=== PATIENT | male | born 1960 | race Caucasian/White ===

== ENCOUNTER → 2016-06-03 | Outpatient (CLI) | payer OTHER ==
[~2016-06-03] MED LIST: ACTOS30 MG PO; AMARYL2 MG PO; AMARYL4 M1 PO; ANTIBIOTIC; BYDUREON P2 MG/0.65 SQ; BYETTA10 MCG/0.0 SQ; HYZAAR 50-12.51 EACH PO; LANTUS100 U/ML SC; LANTUS100 U/ML SG; NORCO 10-325 T1 EACH PO; NORCO 325 MG-51 TAB PO; SYNTHROID0.05 MG/TA PO
== END ==
LOC: LAB 07:01
DX: Z00.00 Encounter for general adult medical examination without abnormal findings (principal); E11.9 Type 2 diabetes mellitus without complications; Z12.5 Encounter for screening for malignant neoplasm of prostate; E03.4 Atrophy of thyroid (acquired)

== ENCOUNTER → 2016-06-09 | Outpatient (CLI) | payer OTHER ==
[2016-06-09 09:30] VITALS: BP 138/80
== END ==
LOC: AMSURD 09:25
DX: Z00.00 Encounter for general adult medical examination without abnormal findings (principal)

== ENCOUNTER → 2016-07-17 | Outpatient (CLI) | payer OTHER | LOC: LAB 07:01 | DX: E03.4 Atrophy of thyroid (acquired) (principal); E11.9 Type 2 diabetes mellitus without complications ==

== ENCOUNTER → 2017-03-18 | Outpatient (CLI) | payer OTHER ==
[2016-06-09 09:30] VITALS: BP 138/80
== END ==
LOC: LAB 16:44
PROVIDERS: Internal Medicine
DX: E11.9 Type 2 diabetes mellitus without complications (principal); E03.4 Atrophy of thyroid (acquired)

== ENCOUNTER → 2018-06-17 | Outpatient (CLI) | payer OTHER ==
[~2018-06-17] VITALS: Ht 188 cm; Wt 111.8 kg
[2018-06-17 15:29] LABS: EOS # 0.1 (0.04-0.40); EOS % 1.3 % (0.0-4.0); HEMATOCRIT 40.9 % (42.0-52.0); HEMOGLOBIN 13.3 g/dL (13.5-18.0); LYMPH# 1.5 (1.50-4.00); MEAN CELL VOLUME 92 fl (78-100); MEAN CORPUSCULAR HEMOGLOBIN 30 pg (27-31); MEAN CORPUSCULAR HGB CONC 33 g/dL (33-37); MEAN PLATELET VOLUME 10.2 fl (7.4-10.4); MONO # 0.6 (0.20-0.80); NEU # 6.7 (1.40-6.50); PLATELET COUNT 136 K/mm3 (130-400); RED BLOOD COUNT 4.46 M/mm3 (4.20-5.60); RED CELL DISTRIBUTION WIDTH 13.5 % (11.5-14.5)
[2018-06-17 15:35] LABS: ALBUMIN 4.2 g/dL (3.5-5.0); CALCIUM 9.3 mg/dL (8.4-10.2); POTASSIUM 4.7 mmol/L (3.6-5.0); TOTAL BILIRUBIN 0.7 mg/dL (0.2-1.3); TOTAL PROTEIN 7.8 g/dL (6.3-8.2)
[2018-06-17 15:41] VITALS: BP 143/85
[2018-06-20 23:57] LABS: ERYTHROCYTE SEDIMENTATION RATE 51 mm/hr (0-20)
== END ==
LOC: LAB 15:04 → RAD 15:04 → AMSURD 15:04
PROVIDERS: Internal Medicine
DX: R16.1 Splenomegaly, not elsewhere classified (principal); R19.04 Left lower quadrant abdominal swelling, mass and lump; R93.5 Abnormal findings on diagnostic imaging of other abdominal regions, including retroperitoneum; R59.0 Localized enlarged lymph nodes
CPT/HCPCS: J0696; J1885; Q9967

== ENCOUNTER → 2018-06-20 | Outpatient (CLI) | payer OTHER ==
[2018-06-17 15:41] VITALS: BP 143/85
== END ==
LOC: LAB 11:34
DX: L02.214 Cutaneous abscess of groin (principal)

== ENCOUNTER → 2018-06-27 | Outpatient (CLI) | payer OTHER ==
[2018-06-17 15:41] VITALS: BP 143/85
[2018-06-27 08:35] LABS: EOS # 0.1 (0.04-0.40); EOS % 2.2 % (0.0-4.0); HEMATOCRIT 43.4 % (42.0-52.0); HEMOGLOBIN 13.7 g/dL (13.5-18.0); LYMPH# 1.4 (1.50-4.00); MEAN CELL VOLUME 93 fl (78-100); MEAN CORPUSCULAR HEMOGLOBIN 29 pg (27-31); MEAN CORPUSCULAR HGB CONC 32 g/dL (33-37); MEAN PLATELET VOLUME 9.8 fl (7.4-10.4); MONO # 0.4 (0.20-0.80); PLATELET COUNT 146 K/mm3 (130-400); RED BLOOD COUNT 4.66 M/mm3 (4.20-5.60); RED CELL DISTRIBUTION WIDTH 14.1 % (11.5-14.5)
[2018-06-27 08:52] LABS: CALCIUM 9.3 mg/dL (8.4-10.2); POTASSIUM 4.9 mmol/L (3.6-5.0); TOTAL BILIRUBIN 0.5 mg/dL (0.2-1.3); TOTAL PROTEIN 7.7 g/dL (6.3-8.2)
[2018-06-27 10:47] LABS: URINE APPEARANCE CLEAR; URINE BILIRUBIN NEGATIVE (NEGATIVE); URINE BLOOD NEGATIVE (NEGATIVE); URINE COLOR YELLOW; URINE KETONE NEGATIVE (NEGATIVE); URINE LEUKOCYTE ESTERASE NEGATIVE (NEGATIVE); URINE NITRATE NEGATIVE (NEGATIVE); URINE PROTEIN(semi-quant) NEGATIVE (NEGATIVE); URINE UROBILINOGEN NORMAL (NORMAL)
[2018-06-27 10:48] LABS: URINE MUCUS PRESENT (NOT PRESENT)
[2018-06-27 22:47] LABS: CREATININE OTHER SOURCE 87 mg/dL (())
== END ==
LOC: LAB 08:10
PROVIDERS: Internal Medicine
DX: Z12.5 Encounter for screening for malignant neoplasm of prostate (principal); Z12.11 Encounter for screening for malignant neoplasm of colon; Z00.00 Encounter for general adult medical examination without abnormal findings

== ENCOUNTER → 2019-04-21 | Outpatient (CLI) | payer OTHER ==
[2018-06-17 15:41] VITALS: BP 143/85
[2019-04-21 12:14] LABS: HEMATOCRIT 40.6 % (42.0-52.0); HEMOGLOBIN 13.5 g/dL (13.5-18.0); MEAN CELL VOLUME 88 fl (78-100); MEAN CORPUSCULAR HEMOGLOBIN 29 pg (27-31); MEAN CORPUSCULAR HGB CONC 33 g/dL (33-37); MEAN PLATELET VOLUME 10.3 fl (7.4-10.4); PLATELET COUNT 127 K/mm3 (130-400); RED BLOOD COUNT 4.64 M/mm3 (4.20-5.60); RED CELL DISTRIBUTION WIDTH 13.6 % (11.5-14.5); WHITE BLOOD COUNT 11.5 K/mm3 (4.8-10.8)
[2019-04-21 12:24] LABS: ALBUMIN 3.8 g/dL (3.5-5.0); POTASSIUM 4.2 mmol/L (3.5-5.1)
[2019-04-21 12:25] LABS: CALCIUM 9.2 mg/dL (8.3-10.5)
[2019-04-21 12:27] LABS: TOTAL PROTEIN 7.5 g/dL (6.4-8.3)
[2019-04-21 12:28] LABS: TOTAL BILIRUBIN 1.6 mg/dL (0.2-1.2)
[2019-04-21 14:16] LABS: LYMPHOCYTE 13 % (20-51); MONOCYTE 6 % (3-10); NEUTROPHILS 80 % (42-75)
[2019-04-21 14:18] LABS: ERYTHROCYTE SEDIMENTATION RATE 50 mm/hr (0-20)
== END ==
LOC: LAB 11:54
PROVIDERS: Internal Medicine
DX: M19.071 Primary osteoarthritis, right ankle and foot (principal); L97.519 Non-pressure chronic ulcer of other part of right foot with unspecified severity

== ENCOUNTER → 2019-04-26 | Outpatient (CLI) | payer OTHER ==
[2018-06-17 15:41] VITALS: BP 143/85
== END ==
LOC: RAD 08:12
DX: L97.519 Non-pressure chronic ulcer of other part of right foot with unspecified severity (principal); M13.871 Other specified arthritis, right ankle and foot; M89.9 Disorder of bone, unspecified
CPT/HCPCS: A9585

== ENCOUNTER → 2019-07-27 | Outpatient (CLI) | payer OTHER ==
[2018-06-17 15:41] VITALS: BP 143/85
[2019-07-27 07:46] LABS: EOS # 0.2 (0.04-0.40); EOS % 3.3 % (0.0-4.0); HEMATOCRIT 42.6 % (42.0-52.0); HEMOGLOBIN 13.9 g/dL (13.5-18.0); LYMPH# 1.5 (1.50-4.00); MEAN CELL VOLUME 89 fl (78-100); MEAN CORPUSCULAR HEMOGLOBIN 29 pg (27-31); MEAN CORPUSCULAR HGB CONC 33 g/dL (33-37); MEAN PLATELET VOLUME 10.1 fl (7.4-10.4); MONO # 0.5 (0.20-0.80); NEU # 2.7 (1.40-6.50); PLATELET COUNT 96 K/mm3 (130-400); RED BLOOD COUNT 4.79 M/mm3 (4.20-5.60); RED CELL DISTRIBUTION WIDTH 14.3 % (11.5-14.5); WHITE BLOOD COUNT 4.9 K/mm3 (4.8-10.8)
[2019-07-27 07:47] LABS: POTASSIUM 3.7 mmol/L (3.5-5.1)
[2019-07-27 07:48] LABS: CALCIUM 10.3 mg/dL (8.3-10.5)
[2019-07-27 07:50] LABS: TOTAL PROTEIN 7.3 g/dL (6.4-8.3)
[2019-07-27 07:51] LABS: TOTAL BILIRUBIN 0.6 mg/dL (0.2-1.2)
== END ==
LOC: LAB 07:21
PROVIDERS: Internal Medicine
DX: E11.9 Type 2 diabetes mellitus without complications (principal)

== ENCOUNTER → 2019-10-21 | Outpatient (CLI) | payer OTHER ==
[2018-06-17 15:41] VITALS: BP 143/85
== END ==
LOC: LAB 17:02
DX: U07.1 COVID-19 (principal)

== ENCOUNTER → 2020-01-11 | Outpatient (CLI) | payer OTHER ==
[2018-06-17 15:41] VITALS: BP 143/85
[2020-01-11 11:22] LABS: EOS # 0.1 (0.04-0.40); EOS % 2.1 % (0.0-4.0); HEMATOCRIT 44.3 % (42.0-52.0); HEMOGLOBIN 14.3 g/dL (13.5-18.0); MEAN CELL VOLUME 90 fl (78-100); MEAN CORPUSCULAR HEMOGLOBIN 29 pg (27-31); MEAN CORPUSCULAR HGB CONC 32 g/dL (33-37); MEAN PLATELET VOLUME 9.9 fl (7.4-10.4); MONO # 0.5 (0.20-0.80); NEU # 3.8 (1.40-6.50); PLATELET COUNT 143 K/mm3 (130-400); RED BLOOD COUNT 4.92 M/mm3 (4.20-5.60); RED CELL DISTRIBUTION WIDTH 14.7 % (11.5-14.5); WHITE BLOOD COUNT 6.5 K/mm3 (4.8-10.8)
[2020-01-11 11:31] LABS: ALBUMIN 4.3 g/dL (3.4-4.8); POTASSIUM 4.5 mmol/L (3.5-5.1)
[2020-01-11 11:32] LABS: CALCIUM 9.6 mg/dL (8.3-10.5)
[2020-01-11 11:34] LABS: TOTAL PROTEIN 8.4 g/dL (6.2-8.1)
[2020-01-11 11:36] LABS: TOTAL BILIRUBIN 0.6 mg/dL (0.2-1.2)
[2020-01-11 12:25] LABS: ERYTHROCYTE SEDIMENTATION RATE 33 mm/hr (0-20)
[2020-01-11 13:08] LABS: URINE APPEARANCE CLEAR; URINE BILIRUBIN NEGATIVE (NEGATIVE); URINE BLOOD NEGATIVE (NEGATIVE); URINE COLOR YELLOW; URINE GLUCOSE NEGATIVE (NEGATIVE); URINE KETONE NEGATIVE (NEGATIVE); URINE LEUKOCYTE ESTERASE NEGATIVE (NEGATIVE); URINE MUCUS PRESENT (NOT PRESENT); URINE NITRATE NEGATIVE (NEGATIVE); URINE PROTEIN(semi-quant) TRACE mg/dL (NEGATIVE); URINE UROBILINOGEN NORMAL (NORMAL); URINE WBC 0-1 /hpf (0-3)
== END ==
LOC: RAD 11:05
PROVIDERS: Internal Medicine
DX: S91.302A Unspecified open wound, left foot, initial encounter (principal); E11.42 Type 2 diabetes mellitus with diabetic polyneuropathy; M14.60 Charcot's joint, unspecified site

== ENCOUNTER → 2020-05-30 | Outpatient (REF) ==
[2018-06-17 15:41] VITALS: BP 143/85
== END ==
LOC: LAB 10:10 → EDSTATUS 10:21
DX: R05 Cough (principal); R11.0 Nausea; Z20.828 Contact with and (suspected) exposure to other viral communicable diseases

== ENCOUNTER → 2020-06-11 | Outpatient (CLI) | payer OTHER ==
[2018-06-17 15:41] VITALS: BP 143/85
[2020-06-11 09:45] LABS: ALBUMIN 3.5 g/dL (3.4-4.8); POTASSIUM 4.6 mmol/L (3.5-5.1)
[2020-06-11 09:48] LABS: HEMATOCRIT 37.2 % (42.0-52.0); HEMOGLOBIN 11.8 g/dL (13.5-18.0); MEAN CELL VOLUME 92 fl (78-100); MEAN CORPUSCULAR HEMOGLOBIN 29 pg (27-31); MEAN CORPUSCULAR HGB CONC 32 g/dL (33-37); MEAN PLATELET VOLUME 10.2 fl (7.4-10.4); PLATELET COUNT 189 K/mm3 (130-400); RED BLOOD COUNT 4.05 M/mm3 (4.20-5.60); RED CELL DISTRIBUTION WIDTH 13.5 % (11.5-14.5); TOTAL PROTEIN 7.2 g/dL (6.2-8.1); WHITE BLOOD COUNT 11.9 K/mm3 (4.8-10.8)
[2020-06-11 09:50] LABS: TOTAL BILIRUBIN 0.6 mg/dL (0.2-1.2)
[2020-06-11 09:58] LABS: LYMPHOCYTE 12 % (20-51); MONOCYTE 7 % (3-10); NEUTROPHILS 81 % (42-75)
[2020-06-11 10:46] LABS: ERYTHROCYTE SEDIMENTATION RATE 65 mm/hr (0-20)
== END ==
LOC: LAB 09:00
DX: B99.9 Unspecified infectious disease (principal)

== ENCOUNTER → 2020-06-13 | Outpatient (CLI) | payer OTHER ==
[2018-06-17 15:41] VITALS: BP 143/85
== END ==
LOC: RAD 12:46
DX: M19.072 Primary osteoarthritis, left ankle and foot (principal)

== ENCOUNTER → 2020-06-18 | Outpatient (CLI) | payer OTHER ==
[2018-06-17 15:41] VITALS: BP 143/85
== END ==
LOC: RAD 08:53
DX: M19.072 Primary osteoarthritis, left ankle and foot (principal); E11.621 Type 2 diabetes mellitus with foot ulcer; L97.529 Non-pressure chronic ulcer of other part of left foot with unspecified severity
CPT/HCPCS: A9585

== ENCOUNTER → 2020-06-20 | Outpatient (CLI) | payer OTHER ==
[2018-06-17 15:41] VITALS: BP 143/85
== END ==
LOC: RAD 14:02
DX: E11.621 Type 2 diabetes mellitus with foot ulcer (principal); E11.610 Type 2 diabetes mellitus with diabetic neuropathic arthropathy; L97.519 Non-pressure chronic ulcer of other part of right foot with unspecified severity; L97.909 Non-pressure chronic ulcer of unspecified part of unspecified lower leg with unspecified severity
CPT/HCPCS: A9585

== ENCOUNTER → 2020-08-01 | Outpatient (CLI) | payer OTHER ==
[2018-06-17 15:41] VITALS: BP 143/85
[~2020-08-01] MED LIST changes: +AMLODIPINE BESYL5 MG PO; +ASPIRIN E.C. 8181 MG PO; +BASAGLAR K100 UNIT/1 SQ; +NOVOLOG FLEX100 U/ML SQ; +ROXICODONE 55 MG/TAB PO; +TRULICITY1.5 MG/0.5 SQ
[2020-08-01 11:18] LABS: URINE WBC 0 /hpf (0-3)
[2020-08-01 11:39] LABS: ALBUMIN 4.4 g/dL (3.4-4.8)
[2020-08-01 11:40] LABS: POTASSIUM 4.7 mmol/L (3.5-5.1)
[2020-08-01 11:41] LABS: CALCIUM 9.7 mg/dL (8.3-10.5)
[2020-08-01 11:42] LABS: TOTAL PROTEIN 7.9 g/dL (6.2-8.1)
[2020-08-01 11:44] LABS: TOTAL BILIRUBIN 0.7 mg/dL (0.2-1.2)
[2020-08-01 11:49] LABS: MAGNESIUM 1.92 mg/dL (1.60-2.60)
[2020-08-01 11:54] LABS: EOS # 0.2 (0.04-0.40); EOS % 2.3 % (0.0-4.0); HEMATOCRIT 39.7 % (42.0-52.0); HEMOGLOBIN 12.8 g/dL (13.5-18.0); MEAN CELL VOLUME 92 fl (78-100); MEAN CORPUSCULAR HEMOGLOBIN 30 pg (27-31); MEAN CORPUSCULAR HGB CONC 32 g/dL (33-37); MEAN PLATELET VOLUME 10.2 fl (7.4-10.4); MONO # 0.6 (0.20-0.80); NEU # 3.9 (1.40-6.50); PLATELET COUNT 131 K/mm3 (130-400); RED BLOOD COUNT 4.33 M/mm3 (4.20-5.60); RED CELL DISTRIBUTION WIDTH 14.7 % (11.5-14.5); WHITE BLOOD COUNT 6.5 K/mm3 (4.8-10.8)
[2020-08-01 12:23] LABS: URINE APPEARANCE CLEAR; URINE BILIRUBIN NEGATIVE (NEGATIVE); URINE BLOOD NEGATIVE (NEGATIVE); URINE COLOR YELLOW; URINE GLUCOSE NEGATIVE (NEGATIVE); URINE KETONE NEGATIVE (NEGATIVE); URINE LEUKOCYTE ESTERASE NEGATIVE (NEGATIVE); URINE MUCUS PRESENT (NOT PRESENT); URINE NITRATE NEGATIVE (NEGATIVE); URINE PROTEIN(semi-quant) NEGATIVE (NEGATIVE); URINE UROBILINOGEN NORMAL (NORMAL)
== END ==
LOC: RAD 10:50
PROVIDERS: Internal Medicine
DX: Z01.812 Encounter for preprocedural laboratory examination (principal)

== ENCOUNTER → 2020-08-05 | Outpatient (CLI) | payer OTHER ==
[2018-06-17 15:41] VITALS: BP 143/85
== END ==
LOC: LAB 07:04
DX: Z01.812 Encounter for preprocedural laboratory examination (principal); Z20.822 Contact with and (suspected) exposure to COVID-19

== ENCOUNTER → 2020-11-04 | Outpatient (CLI) | payer OTHER ==
[2020-11-04 15:38] LABS: HEMATOCRIT 37.6 % (42.0-52.0); HEMOGLOBIN 12.4 g/dL (13.5-18.0); MEAN PLATELET VOLUME 10.4 fl (7.4-10.4); RED BLOOD COUNT 4.23 M/mm3 (4.20-5.60); RED CELL DISTRIBUTION WIDTH 13.5 % (11.5-14.5); WHITE BLOOD COUNT 5.9 K/mm3 (4.8-10.8)
[2020-11-04 15:46] LABS: POTASSIUM 4.2 mmol/L (3.5-5.1)
[2020-11-04 15:47] LABS: CALCIUM 9.4 mg/dL (8.3-10.5)
[2020-11-04 15:49] LABS: TOTAL PROTEIN 7.3 g/dL (6.2-8.1)
[2020-11-04 15:50] LABS: TOTAL BILIRUBIN 0.6 mg/dL (0.2-1.2)
== END ==
LOC: LAB 12:14
PROVIDERS: Internal Medicine Infectious Disease
DX: T81.49XA Infection following a procedure, other surgical site, initial encounter (principal)

== ENCOUNTER → 2020-11-11 | Outpatient (CLI) | payer OTHER ==
[2020-11-11 18:33] LABS: ALBUMIN 3.9 g/dL (3.4-4.8); POTASSIUM 4.2 mmol/L (3.5-5.1)
[2020-11-11 18:35] LABS: CALCIUM 8.9 mg/dL (8.3-10.5); HEMATOCRIT 37.1 % (42.0-52.0); HEMOGLOBIN 12.4 g/dL (13.5-18.0); MEAN PLATELET VOLUME 11.6 fl (7.4-10.4); RED BLOOD COUNT 4.18 M/mm3 (4.20-5.60); RED CELL DISTRIBUTION WIDTH 13.6 % (11.5-14.5); WHITE BLOOD COUNT 6.1 K/mm3 (4.8-10.8)
[2020-11-11 18:38] LABS: TOTAL BILIRUBIN 0.6 mg/dL (0.2-1.2)
== END ==
LOC: LAB 15:00
PROVIDERS: Internal Medicine Infectious Disease
DX: I97.89 Other postprocedural complications and disorders of the circulatory system, not elsewhere classified (principal); Z79.899 Other long term (current) drug therapy

== ENCOUNTER → 2020-11-18 | Outpatient (CLI) | payer OTHER ==
[2020-11-18 16:02] LABS: HEMATOCRIT 38.6 % (42.0-52.0); HEMOGLOBIN 12.6 g/dL (13.5-18.0); MEAN PLATELET VOLUME 10.5 fl (7.4-10.4); RED BLOOD COUNT 4.33 M/mm3 (4.20-5.60); RED CELL DISTRIBUTION WIDTH 13.8 % (11.5-14.5); WHITE BLOOD COUNT 5.5 K/mm3 (4.8-10.8)
[2020-11-18 16:04] LABS: ALBUMIN 4.1 g/dL (3.4-4.8); POTASSIUM 4.3 mmol/L (3.5-5.1)
[2020-11-18 16:05] LABS: CALCIUM 9.2 mg/dL (8.3-10.5)
[2020-11-18 16:06] LABS: TOTAL PROTEIN 7.6 g/dL (6.2-8.1)
[2020-11-18 16:08] LABS: TOTAL BILIRUBIN 1.2 mg/dL (0.2-1.2)
== END ==
LOC: LAB 15:30
PROVIDERS: Internal Medicine Infectious Disease
DX: I97.89 Other postprocedural complications and disorders of the circulatory system, not elsewhere classified (principal)

== ENCOUNTER → 2020-11-25 | Outpatient (CLI) | payer OTHER ==
[2020-11-25 15:50] LABS: HEMATOCRIT 39.3 % (42.0-52.0); HEMOGLOBIN 12.6 g/dL (13.5-18.0); MEAN PLATELET VOLUME 9.8 fl (7.4-10.4); RED BLOOD COUNT 4.38 M/mm3 (4.20-5.60); RED CELL DISTRIBUTION WIDTH 13.2 % (11.5-14.5); WHITE BLOOD COUNT 6.2 K/mm3 (4.8-10.8)
[2020-11-25 16:20] LABS: ALBUMIN 3.9 g/dL (3.4-4.8)
[2020-11-25 16:22] LABS: CALCIUM 9.1 mg/dL (8.3-10.5)
[2020-11-25 16:23] LABS: TOTAL PROTEIN 7.1 g/dL (6.2-8.1)
[2020-11-25 16:25] LABS: TOTAL BILIRUBIN 0.5 mg/dL (0.2-1.2)
== END ==
LOC: LAB 15:16
PROVIDERS: Orthopaedic Surgery
DX: T81.89XA Other complications of procedures, not elsewhere classified, initial encounter (principal)

== ENCOUNTER → 2020-12-03 | Outpatient (CLI) | payer OTHER ==
[2020-12-03 15:49] LABS: HEMATOCRIT 40.4 % (42.0-52.0); HEMOGLOBIN 12.8 g/dL (13.5-18.0); RED BLOOD COUNT 4.49 M/mm3 (4.20-5.60); RED CELL DISTRIBUTION WIDTH 13.4 % (11.5-14.5); WHITE BLOOD COUNT 5.2 K/mm3 (4.8-10.8)
[2020-12-03 16:02] LABS: ALBUMIN 3.8 g/dL (3.4-4.8); POTASSIUM 4.3 mmol/L (3.5-5.1)
[2020-12-03 16:03] LABS: CALCIUM 8.9 mg/dL (8.3-10.5)
[2020-12-03 16:05] LABS: TOTAL PROTEIN 7.2 g/dL (6.2-8.1)
[2020-12-03 16:07] LABS: TOTAL BILIRUBIN 0.5 mg/dL (0.2-1.2)
== END ==
LOC: LAB 12-02 15:02
PROVIDERS: Internal Medicine Infectious Disease
DX: T81.89XA Other complications of procedures, not elsewhere classified, initial encounter (principal)

== ENCOUNTER 2020-12-09 15:06 | Outpatient (RCR) | payer OTHER ==
--- NOTE | 2020-11-01 11:05 | NUR ---
PATIENT REPORTS HAVING WOUND VAC WITH DRESSING CHANGES PROVIDED BY THIS FACILITY. ORDER DOES NOT REFLECT THAT. CONTACT INFECTIOUS DISEASE AND SPEAK WITH CY[facility], WHO DOES NOT HAVE AN ORDER FOR WOUND CARE. SHE REFERS TO WOUND CARE CLINIC. CONTACT [facility] WHO CONFIRMS THAT THEY HAVE NOT SEEN PATIENT EITHER. HOSPITAL NOTE RECEIVED ON PATIENT DOES CONFIRM A WOUND VAC WAS PLACED. CONTACT CUBA LOU RNMANAGED CARE PROVIDER AT [phone]. CUBA REPORTS HE THOUGHT ORDERS WERE FAXED TO OUR FACILITY REGARDING WOUND CARE. ADVISE CUBA THAT ORDER SHOULD INCLUDE WHO TO CONTACT REGARDING CHANGES IN WOUND OR WOUND VAC NEEDS AND WHO WILL BE FOLLOWING WOUND HEALING. ALSO ADVISE CUBA THAT TYPICALLY, OUTPATIENT WOUND VACS SEE WOUND CARE ONCE A WEEK DURING TREATMENT. HE WILL FAX INFORMATION TODAY.
--- NOTE | 2020-11-01 13:27 | NUR ---
RECEIVE FAX WITH ORDER FOR M,W,F AND PRN WOUND VAC DRESSING CHANGES. CONTACT NICHOLAS BRINK CASEMANAGER AT [facility], TO VERIFY WHO WILL BE MONITORING WOUND TREATMENT AND PROGRESS. CUBA TRANSFERS CALL TO NICHOLAS RUSSELL WITH [facility]. YVONNE WILL CONTACT WOUND CARE CLINIC IN [place] TO SEE IF THEY CAN ACCOMODATE HIM WEEKLY TO MONITOR HEALING. YVONNE WILL ALSO CONTACT PATIENT TO VERIFY THAT [facility].
[2020-11-02 15:16] VITALS: BP 140/82
[2020-11-03 15:19] VITALS: BP 150/89
--- NOTE | 2020-11-04 08:44 | NUR ---
Contacted Colby Dunn information management specialist at [facility] to follow up on wound care orders not received on Wednesday11/01/20. Colby states that he will contact Bull and have her call [facility].
--- NOTE | 2020-11-04 11:20 | NUR ---
Attempted to contact Colby Dunn RNmaterials management clerk at [facility], no answer x2.
--- NOTE | 2020-11-04 11:25 | NUR ---
Called office of Dr. Edwards to follow up with NICHOLAS Gottlieb regarding wound care consult and wound VAC orders. No answer. No option to leave .
--- NOTE | 2020-11-04 11:45 | NUR ---
Called Jerry Shaw's nurse Bull, RN at [phone] regarding wound care consult and wound VAC orders. Bull states that she called wound care three times on wednesday and was unable to get ahold of them. Bull states that she will contact wound care now and have them call [facility] to provide weekly appointment day and time for wound assessment and wound VAC dressing change.
--- NOTE | 2020-11-04 14:44 | NUR ---
Israel Gottlieb RN patient has appointment with wound care at [facility] on 11/06/20 at 1100.
[2020-11-04 15:33] VITALS: BP 150/84
[2020-11-05 15:37] VITALS: BP 128/75
[2020-11-06 15:15] VITALS: BP 157/93
[2020-11-07 15:28] VITALS: BP 142/78
[2020-11-08 15:03] VITALS: BP 171/90
--- NOTE | 2020-11-08 16:00 | NUR ---
patient to room 5 for outpatient iv antibiotics and wound vac care. patient's wound vac on 125 mmhg continuous suction. canister full with serosangenious drainage. wound vac removed. patient has wound to left lateral foot that measures 10cm x 3cm 2 cm depth. wound bed red with granualtion tissue present to 95% of wound bed. 5% has some yellow tissue. wound edges intact. skin pink. patient has wound to left medial foot. measures 3.5cm x 2cm 1.5 cm depth. wound bed red with granulation tissue there is a small amount of yellow tissue to wound bed. there are 2 dark brown areas of tissue that are round approximately 2mm round located at 2 o clock in wound bed. wound edges intact. there is an incision that extends from distal edge of wound that has sutures in place. tissue white and macerated. patient has wound to top of foot that has green/yellow slough to wound bed. patient has healing wound to bottom of foot that is open to air. wounds cleansed with wound cleanser and saline. wound vac reapplied per protocal. patient's mepitel one dressing that was brought in by patient from wound clinic to use placed over incision on left medial foot per instructions. wound vac canister changed. patient's wound vac turned back on at 125 mmhg continuous with no leak alarms at this time. foot wrapped in leopoldo wrap and brace reapplied. patient tolerated well.
[2020-11-09 15:00] VITALS: BP 129/78
[2020-11-10 15:20] VITALS: BP 143/78
[2020-11-11 15:07] VITALS: BP 146/84
[2020-11-12 15:30] VITALS: BP 131/74
[2020-11-13 15:37] VITALS: BP 131/82
[2020-11-15 16:04] VITALS: BP 166/88
[2020-11-15 17:06] VITALS: BP 137/74
[2020-11-16 15:28] VITALS: BP 130/80
[2020-11-17 15:15] VITALS: BP 107/64
[2020-11-18 15:45] VITALS: BP 123/76
[2020-11-19 15:40] VITALS: BP 121/78
[2020-11-20 15:15] VITALS: BP 119/74
[2020-11-22 13:48] VITALS: BP 137/82
[2020-11-22 15:32] VITALS: BP 127/78
[2020-11-23 15:36] VITALS: BP 132/83
[2020-11-24 15:20] VITALS: BP 145/82
[2020-11-25 15:28] VITALS: BP 128/77
[2020-11-26 15:34] VITALS: BP 130/74
[2020-11-27 15:19] VITALS: BP 131/79
[2020-11-28 15:25] VITALS: BP 126/78
[2020-11-29 15:28] VITALS: BP 141/83
[2020-11-30 15:14] VITALS: BP 166/83
[2020-12-01 15:30] VITALS: BP 138/75
[2020-12-02 15:28] VITALS: BP 143/9
[2020-12-03 15:25] VITALS: BP 129/81
[2020-12-04 15:36] VITALS: BP 160/91
[2020-12-05 15:13] VITALS: BP 138/79
[2020-12-06 16:16] VITALS: BP 123/82
[2020-12-06 16:55] VITALS: BP 136/81
[2020-12-07 15:08] VITALS: BP 128/82
[2020-12-08 15:18] VITALS: BP 131/81
[~2020-12-09] VITALS: Ht 188 cm; Wt 121.4 kg
[2020-12-09 15:44] VITALS: BP 141/96
[2020-12-09 16:39] VITALS: BP 126/58
== END 2020-12-09 16:00 | disposition home or self-care (01) ==
LOC: AMSURD 15:06
DX: T87.50 Necrosis of amputation stump, unspecified extremity (principal); I97.89 Other postprocedural complications and disorders of the circulatory system, not elsewhere classified
CPT/HCPCS: J0878

== ENCOUNTER → 2020-12-09 | Outpatient (CLI) | payer OTHER ==
[2020-12-09 16:33] LABS: HEMATOCRIT 41.2 % (42.0-52.0); HEMOGLOBIN 13.3 g/dL (13.5-18.0); MEAN PLATELET VOLUME 10.7 fl (7.4-10.4); RED BLOOD COUNT 4.61 M/mm3 (4.20-5.60); RED CELL DISTRIBUTION WIDTH 13.7 % (11.5-14.5); WHITE BLOOD COUNT 4.8 K/mm3 (4.8-10.8)
[2020-12-09 16:37] LABS: POTASSIUM 4.4 mmol/L (3.5-5.1)
[2020-12-09 16:39] LABS: CALCIUM 9.3 mg/dL (8.3-10.5)
[2020-12-09 16:40] LABS: TOTAL PROTEIN 7.4 g/dL (6.2-8.1)
[2020-12-09 16:42] LABS: TOTAL BILIRUBIN 0.6 mg/dL (0.2-1.2)
== END ==
LOC: LAB 15:28
PROVIDERS: Orthopaedic Surgery
DX: I97.89 Other postprocedural complications and disorders of the circulatory system, not elsewhere classified (principal)

== ENCOUNTER → 2020-12-18 | Outpatient (CLI) | payer OTHER ==
[2020-12-18 11:03] LABS: HEMATOCRIT 45.5 % (42.0-52.0); HEMOGLOBIN 14.6 g/dL (13.5-18.0); MEAN PLATELET VOLUME 10.5 fl (7.4-10.4); RED BLOOD COUNT 5.04 M/mm3 (4.20-5.60)
== END ==
LOC: LAB 10:41
PROVIDERS: Internal Medicine Infectious Disease
DX: I97.89 Other postprocedural complications and disorders of the circulatory system, not elsewhere classified (principal)